=== PATIENT | female | born 1970 | race African-American/Black ===

== ENCOUNTER → 2017-01-28 | Outpatient (CLI) | payer MEDICARE, OTHER ==
[~2017-01-28] MED LIST: CALTRATE 600+D PO; CIPRO PO; FAMOTIDINE PO; FERROUS SULFATE PO; FLEXERIL PO; HCTZ PO; KETOPROFEN PO; LYRICA PO; PROVENTIL17 GM IH; PYRIDIUM PO; TRILEPTAL PO
--- NOTE | ~2017-01-28 | CT16 ---
[facility] A Service of [facility] & [facility] RADIOLOGY TEXT RESULTS PATIENT: DEEPA GILBERT LOCATION: [facility] : [birth year] UNIT #: [id number] AGE: [address]: DOMI LEON SEX: F ORDER DR: [id number] [facility] [address] [place], [place] [address] [id number] O MR#: [id number] Acc #: [id number] NAME: DEEPA GILBERT : 1970 SEX: F STUDY DATE/TIME: 01/28/2017 15:48 UNIT: [facility] ROOM: STUDY DESCRIPTION: CT Angio Chest for PE Attending Physician: Mary Lou Lee Referring Physician: Mary Lou Lee Ordering Physician: Mary Lou Lee Primary Care Physician: Elvie Dumont M.D. MEDICAL IMAGING REPORT This report is preliminary unless electronic signature is present EXAM Chest CTA, 01/28. INDICATIONS Chest pain and elevated D-dimer. Symptoms for 1 month. Intermittent shortness of air as well. History of hypertension. TECHNIQUE Axial images were obtained through the chest following IV contrast administration. 3-D reformats were obtained. This CT exam was performed with one or more of the following radiation dose reduction techniques: automatic exposure control, adjustment of mA and/or kV according to patient size, and iterative reconstruction. COMPARISON No comparison CT. FINDINGS There is no pulmonary embolism or aortic dissection. No pleural or pericardial effusion. No adenopathy. The lungs are clear. The upper abdomen demonstrates 2 small hypodensities in the liver, 1 in the medial segment of the left lobe and one in the right lobe centrally. These are probably small cysts or hemangiomata in the absence of a known malignancy. IMPRESSION 1. No pulmonary embolism or aortic dissection. 2. No active disease in the chest. 3. Two small hypodense lesions in the liver. While nonspecific, these are likely small cysts or hemangiomata in the absence of a known malignancy. If these are of concern clinically, they could be further assessed with nonemergent multiphase MRI or CT of the liver. [facility] A Service of [facility] & [facility] RADIOLOGY TEXT RESULTS PATIENT: DEEPA GILBERT LOCATION: [facility] : [birth year] UNIT #: [id number] AGE: [address]: DOMI LEON SEX: F ORDER DR: Dictated by... Burt Bacon Jr., M.D. THIS IS AN ELECTRONICALLY VERIFIED REPORT Burt Bacon Jr., M.D. at 01/28/2017 10:34 PM JOSE MANUEL/trini TD: 01/28/2017 18:36 JOB #: [id number] MEDICAL IMAGING REPORT Page 1 of 1 COPY
[2017-01-28 17:11] LABS: POC - GFR >60.0 mL/min (>60)
== END | disposition home or self-care (01) ==
LOC: CCAT 01-27 09:00
PROVIDERS: Nurse Practitioner Family
DX: R07.9 Chest pain, unspecified (principal); R79.1 Abnormal coagulation profile; K76.9 Liver disease, unspecified
CPT/HCPCS: 71275; 82565; Q9967